=== PATIENT | male | born 1985 ===

== ENCOUNTER 2017-06-20 01:07 | Emergency (ER) | payer SELFPAY ==
[2017-06-20 01:14] VITALS: BP 134/83; PULSE 78; RESP 16; TEMP 98.3; O2SAT 98
--- NOTE | 2017-06-20 01:55 | ED PDOC ---
HPI: Psych/Substance Abuse Time Seen by Provider: 06/20/17 01:20 Chief Complaint (Nursing): Psychiatric Evaluation Chief Complaint (Provider): Crisis Evaluation History Per: Patient History/Exam Limitations: no limitations Additional Complaint(s): Luis is a 31 y/o male who was brought to the ED for a crisis evaluation after his parents state they heard he made a statement alluding to wanting to hurt himself. Patient denies statement and says he had a verbal altercation earlier with his step father and believes that somebody told his parents that he had been upset and made this statement which is categorically false. Patient denies homicidal or suicidal ideation, hallucinations. PMD: None Provided Past Medical History Reviewed: Historical Data, Nursing Documentation, Vital Signs Vital Signs: Last Vital Signs Temp 98.3 F 06/20/17 01:10 Pulse 78 06/20/17 01:10 Resp 16 06/20/17 01:10 BP 134/83 06/20/17 01:10 Pulse Ox 98 06/20/17 01:10 - Medical History PMH: No Chronic Diseases - Surgical History Surgical History: No Surg Hx - Family History Family History: States: Unknown Family Hx - Social History Current smoker - smoking cessation education provided: No Ex-Smoker (has not smoked in the last 12 months): No Alcohol: Occasional Drugs: Denies - Allergies Allergies/Adverse Reactions: Allergies Allergy/AdvReac Type Severity Reaction Status Date / Time No Known Allergies Allergy Verified 06/20/17 01:13 Review of Systems ROS Statement: Except As Marked, All Systems Reviewed And Found Negative Psych: Negative for: Suicidal ideation, Other (hallucinations) Physical Exam - Reviewed Nursing Documentation Reviewed: Yes Vital Signs Reviewed: Yes - Physical Exam Appears: Positive for: Well, Non-toxic, No Acute Distress Head Exam: Positive for: ATRAUMATIC, NORMAL INSPECTION, NORMOCEPHALIC Skin: Positive for: Normal Color, Warm, Dry Cardiovascular/Chest: Positive for: Regular Rate, Rhythm. Negative for: Murmur Respiratory: Positive for: Normal Breath Sounds. Negative for: Respiratory Distress Extremity: Positive for: Normal ROM. Negative for: Pedal Edema, Deformity Neurologic/Psych: Positive for: Alert, Oriented. Negative for: Motor/Sensory Deficits - ECG O2 Sat by Pulse Oximetry: 98 (RA) Pulse Ox Interpretation: Normal Medical Decision Making Medical Decision Making: Time: 1:28 Initial Impression: 31 y/o male sent for crisis evaluation Initial Plan: --Crisis Evaluation --1:1 Observation Time: 3:39 --Patient was evaluated by crisis and is stable for discharge home. Clinical Impression: Adjustment Disorder Scribe Attestation: Documented by Flash Dover, acting as a scribe for Rudy Carmona MD Provider Scribe Attestation: All medical record entries made by the Scribe were at my direction and personally dictated by me. I have reviewed the chart and agree that the record accurately reflects my personal performance of the history, physical exam, medical decision making, and the department course for this patient. I have also personally directed, reviewed, and agree with the discharge instructions and disposition. Disposition - Clinical Impression Clinical Impression: Adjustment disorder - Patient ED Disposition Is Patient to be Admitted: No Counseled Patient/Family Regarding: Studies Performed, Diagnosis, Need For Followup - Disposition Disposition: Routine/Home Disposition Time: 03:39 Condition: STABLE Instructions: Adjustment Disorder Forms: [employer] ([place])
== END 2017-06-20 04:20 | disposition home or self-care (01) ==
LOC: H.ER 01:07
DX: F43.20 Adjustment disorder, unspecified (principal)